=== PATIENT | female | born 1965 | race Caucasian/White ===

== ENCOUNTER 2024-09-11 12:48 | Outpatient (AMB) | payer OTHER, SELFPAY ==
--- NOTE | 2024-09-11 12:49 | AM.OFFWIN_ITS ---
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 Patient Tobacco Use Status: Never used Tobacco Allergies acetaminophen [From PERCOCET] Allergy (Unknown, Unverified 09/11/24 12:53) Vomiting bacitracin [From NEOSPORIN ([id number])] Allergy (Unknown, Unverified 09/11/24 12:53) Rash lanolin Allergy (Unknown, Unverified 09/11/24 12:53) Unknown neomycin [From NEOSPORIN ([id number])] Allergy (Unknown, Unverified 09/11/24 12:53) Rash nickel Allergy (Unknown, Verified 09/11/24 12:53) Unknown oxycodone [From PERCOCET] Allergy (Unknown, Unverified 09/11/24 12:53) Vomiting polymyxin B [From NEOSPORIN ([id number])] Allergy (Unknown, Unverified 09/11/24 12:53) Rash Do you need a note to return to daycare/school/sports/work: No HPI HPI Comments History of Present Illness Details Patient is a 59-year-old female complaining 6 days of a cough which seems to be worse at night, postnasal drip, sneezing, headache, sinus pain that radiates into her teeth. She denies any fevers, chills, shortness of breath or ear pain. 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 She tells me she is status post a hysterectomy in February of 2022 and status post radiation on her spine with a kyphoplasty. She is curious as to whether this illness she has is related to her cancer or her cancer treatment. She tells me she has not called her oncologist to make him aware of the fact that she is sick. She tells me that she does get blood work every 3 weeks in the last time she got blood work was 2 weeks ago. She tells me she has been using NyQuil but switch to a cough and sore throat [id number] medication at 3am today and has been using cough drops. [facility] Social History Patient Tobacco Use Status: Never used Tobacco Review of Systems Const All systems reviewed & are unremarkable except as noted in HPI and below Physical Exam Vital Signs: Last Vital Signs Pulse 77 09/11/24 12:52 BP 140/90 H 09/11/24 12:52 Pulse Ox 98 09/11/24 12:52 Oxygen Delivery Method Room Air 09/11/24 12:52 BMI result Body Mass Index 21.9 Const General: cooperative, healthy appearing, comfortable and no acute distress Orientation/consciousness: patient oriented x3 Limitations: no limitations HEENT Head: Yes normal to inspection Ears: hearing grossly normal bilaterally, external ears normal and TM's normal bilaterally General nose exam: Normal external nose present, Normal nares present and No nasal discharge present Face and sinus: Yes normal facial exam and Yes sinus tenderness Mouth: Normal oral and palatal mucosa present and moist mucous membranes Throat: Yes tonsils normal, Yes uvula midline and Yes posterior oropharynx abnormal (Erythema) Eyes General: appearance normal, both eyes and all related structures Neck Neck: Yes normal visual inspection Resp Effort & Inspection: normal respiratory effort, able to speak in complete sentences, no respiratory distress, not tachypneic, no tripod positioning and no use of accessory muscles Auscultation: clear to auscultation bilaterally Cardio Rate: regular rate Rhythm: regular rhythm Heart sounds: normal S1 and S2 Skin General skin exam: no rashes or lesions noted Neuro General: patient oriented x3 Extrem General: Yes normal to inspection and Yes no clubbing, cyanosis or edema Assessment & Plan Assessment & Plan (1) Sinusitis: Code(s): J32.9 - Chronic sinusitis, unspecified Qualifiers: Sinusitis location: maxillary Chronicity: acute Recurrence: non- recurrent Qualified Code(s): J01.00 - Acute maxillary sinusitis, unspecified Plan: Vital signs are stable and patient is well-appearing, physical exam is unremarkable except for some tenderness of the sinuses. As it has been 6 days, we will prescribe Augmentin but did encourage patient to use a Neti pot with distilled water and Flonase. Educated patient on the proper use of Flonase and a Neti pot. Also encouraged patient to let her oncologist know that she is sick diagnosed with sinusitis and will be getting Augmentin for treatment. Plan See above Medications: New amoxicillin-pot clavulanate 875-125 mg 1 tab PO Q12H 10 tabs 0RF Coding Level of Care Code New Pt Level 4 (83598) Diagnoses Acute non-recurrent maxillary sinusitis J01.00 Sinusitis location: maxillary Chronicity: acute Recurrence: non-recurrent
[2024-09-11 12:52] VITALS: BP 140/90; PULSE 77; O2SAT 98; BMI 21.9
== END 2024-09-11 13:31 | disposition home or self-care (01) ==
PROVIDERS: PCP Family Medicine; Visit Provider Physician Assistant
DX: J01.00 Acute maxillary sinusitis, unspecified (principal)

== ENCOUNTER → 2024-09-11 12:48 | Outpatient (BNVA) | payer OTHER, SELFPAY | PROVIDERS: PCP Family Medicine; Visit Provider Physician Assistant ==